=== PATIENT | female | born 1960 | race Caucasian/White ===

== ENCOUNTER 2018-07-25 15:18 | Emergency (ER) | payer MEDICAID ==
[~2018-07-25] VITALS: Ht 154.9 cm; Wt 61.8 kg
[2018-07-25 15:23] VITALS: BP 148/85; PULSE 77; RESP 19; Ht 154.9 cm; Wt 61.8 kg
[2018-07-25] MEDS ORDERED: NPH10OT RIGHT EAR (15:34)
--- NOTE | 2018-07-25 15:37 | ERD ---
ER Documentation Chief Complaint Chief Complaint right ear pain x 3 days HPI 58-year-old female presenting with pain to her right ear x3 days. Denies any rash. Has not had any fluid draining from the ear. Denies runny nose. Has not used medications. Denies congestion. States the pain started after she was showering and got extensive amount of water in her ear. Denies other medical problems. NKDA. Surgical history denies. Social history denies ROS All systems reviewed and are negative except as per history of present illness. Medications Home Meds Active Scripts Neomycin/Polymyxin/Hydrocort* (Cortisporin* Otic) 10 Ml Susp, 4 DROP RIGHT EAR QID for 7 Days, EA Prov:LEOLA YANG PA-C 07/25/18 FmHx Family History: No diabetes, No coronary disease, No other Physical Exam Vitals Vital Signs Date Temp Pulse Resp B/P (MAP) Pulse Ox O2 O2 Flow FiO2 Time Delivery Rate 07/25/18 97.9 77 19 148/85 97 15:23 (106) Physical Exam GENERAL: The patient is well-appearing, well-nourished, in no acute distress HEENT: Atraumatic. Conjunctivae are pink. Pupils equal, round, and reactive to light. There is no scleral icterus. Tympanic membranes clear bilaterally. Oropharynx clear. Positive tragal tenderness. NECK: C-spine is soft and supple. There is no meningismus. There is no cervical lymphadenopathy. CHEST: Clear to auscultation bilaterally. There are no rales, wheezes or rhonchi. HEART: Regular rate and rhythm. No murmurs, clicks, rubs or gallops. Procedures/MDM MDM: 58-year-old female presenting with findings consistent with otitis externa. I have low suspicion for otitis media. I have low suspicion for retained foreign body. Patient does not have dental pain on exam. I have low suspicion for dental abscess radiating to the ear. I have low suspicion for shingles or neuro deficit. Patient is discharged with strict ER precautions and told to follow-up with primary care within 1 to 2 days for close evaluation. All questions answered at discharge Departure Diagnosis: Primary Impression: Otitis externa Additional Impression: Right ear pain Condition: Stable Patient Instructions: External Ear Infection (Adult) Referrals: [facility] YOU HAVE RECEIVED A MEDICAL SCREENING EXAM AND THE RESULTS INDICATE THAT YOU DO NOT HAVE A CONDITION THAT REQUIRES URGENT TREATMENT IN THE EMERGENCY DEPARTMENT. FURTHER EVALUATION AND TREATMENT OF YOUR CONDITION CAN WAIT UNTIL YOU ARE SEEN IN YOUR DOCTORS OFFICE WITHIN THE NEXT 1-2 DAYS. IT IS YOUR RESPONSIBILITY TO MAKE AN APPOINTMENT FOR FOLOW-UP CARE. IF YOU HAVE A PRIMARY DOCTOR --you should call your primary doctor and schedule an appointment IF YOU DO NOT HAVE A PRIMARY DOCTOR YOU CAN CALL OUR PHYSICIAN REFERRAL HOTLINE AT IF YOU CAN NOT AFFORD TO SEE A PHYSICIAN YOU CAN CHOSE FROM THE FOLLOWING [facility] [id number] [facility] [address] [facility] [facility] [address] [facility] [address] [facility] [address] [facility] [facility]. [address] Additional Instructions: FOLLOW UP WITH YOUR PRIMARY CARE PHYSICIAN TOMORROW.Return to this facility if you are not improving as expected. LEOLA YANG PA-C Jul 25, 2018 15:37
== END 2018-07-25 18:07 | disposition home or self-care (01) ==
LOC: FTE 15:18
DX: H60.91 Unspecified otitis externa, right ear (principal)
CPT/HCPCS: 99283